=== PATIENT | male | born 1955 | race Caucasian/White ===

== ENCOUNTER 2018-02-16 20:35 | Emergency (ER) | payer OTHER ==
[~2018-02-16] VITALS: Ht 170.2 cm; Wt 61.2 kg
[~2018-02-16 20:35] MED LIST: ALBU.083IS IH; ALBU90OI INH; ASPI325 PO; ATOR40TA PO; ATOR80 PO; AZIT250 PO; BUDE6HFA; DILT180 PO; FLUSAL2505 INH; FLUT44OIA IH; IBUP800 PO; LISI20 PO; Lo-Dose Aspirin81 MG PO; NITR.6SL PO; OMEP40CA12 PO; PRED20 PO; SULTRIDS PO; TUDORZA PRESS400 MCG
[2018-02-16 21:19] LABS: BASOPHILS ABSOLUTE AUTO 0.07 K/mm3 (0.00-0.23); BASOPHILS PERCENT AUTO 1 % (0-2); EOSINOPHILS ABSOLUTE AUTO 0.05 K/mm3 (0.00-0.68); EOSINOPHILS PERCENT AUTO 0 % (0-6); Hematocrit 37.5 % (37.0-53.0); Hemoglobin 12.9 g/dL (13.5-17.5); IMMATURE GRAN ABSOLUTE AUTO 0.05 K/mm3 (0.00-0.10); IMMATURE GRAN PERCENT AUTO 0 % (0-1); LYMPHOCYTES ABSOLUTE AUTO 1.08 K/mm3 (0.84-5.20); LYMPHOCYTES PERCENT AUTO 9 % (21-46); MONOCYTES ABSOLUTE AUTO 1.58 K/mm3 (0.16-1.47); MONOCYTES PERCENT AUTO 13 % (4-13); Mean Corpuscular HGB 34.3 pg (26.0-34.0); Mean Corpuscular HGB Conc 34.4 g/dL (31.5-36.5); Mean Corpuscular Volume 100 fL (80-100); NEUTROPHILS ABSOLUTE AUTO 9.25 K/mm3 (1.96-9.15); NEUTROPHILS PERCENT AUTO 77 % (41-73); Platelet Count 515 K/mm3 (150-400); RDW Coefficient Variation 12.7 % (11.7-14.2); Red Blood Cell Count 3.76 M/mm3 (4.30-5.90); White Blood Cell Count 12.08 K/mm3 (4.00-11.30)
[2018-02-16 21:32] LABS: International Normalized Ratio 1.14; Prothrombin Time Results 11.7 Sec (9.7-11.5)
[2018-02-16 21:35] LABS: Alanine Aminotransfer (ALT/SGP 26 U/L (12-78); Albumin/Globulin Ratio 0.6 (0.8-1.8); Alk Phos 125 U/L (50-136); Anion Gap 10 mmol/L (6-16); Aspartate Aminotrans (AST/SGOT 19 U/L (12-37); Bilirubin, Total 0.7 mg/dL (0.1-1.0); Blood Urea Nitrogen 9 mg/dL (8-24); Bun/Creatinine Ratio 12.6 (12.0-20.0); CO2, Blood 26 mmol/L (21-32); Calcium, Blood 8.8 mg/dL (8.5-10.1); Chloride, Blood 95 mmol/L (98-108); Creatinine, Blood 0.71 mg/dL (0.60-1.20); Globulin, Blood 4.7 g/dL (2.2-4.0); Glomerular Filtration Rate >60 (60-); Glucose, Blood 142 mg/dL (70-99); Potassium, Blood 4.2 mmol/L (3.5-5.5); Sodium, Blood 131 mmol/L (136-145); Total Protein, Blood 7.7 g/dL (6.4-8.2); Troponin I <0.015 ng/mL (0.000-0.040)
[2018-02-16] MEDS ORDERED: Prednisone20 MG PO (22:52)
[2018-02-16] MEDS ORDERED: Zithromax250 MG PO (22:52)
== END 2018-02-16 22:55 | disposition home or self-care (01) ==
LOC: ER 20:35
PROVIDERS: Emergency Medicine
DX: J44.1 Chronic obstructive pulmonary disease with (acute) exacerbation (principal); I48.91 Unspecified atrial fibrillation; F17.210 Nicotine dependence, cigarettes, uncomplicated; Z88.8 Allergy status to other drugs, medicaments and biological substances; Z79.899 Other long term (current) drug therapy; Z79.51 Long term (current) use of inhaled steroids; Z79.82 Long term (current) use of aspirin
CPT/HCPCS: 36415; 71046; 80053; 84484; 85025; 85610; 93005; 93010; 94640; 96365; 96375; 99285-25; J2930; J3010

== ENCOUNTER 2018-02-18 04:40 | Emergency (ER) | payer OTHER ==
[~2018-02-18] VITALS: Ht 170.2 cm; Wt 61.2 kg
[~2018-02-18 04:40] MED LIST changes: +Prednisone20 MG PO; +Zithromax250 MG PO
[2018-02-18 05:23] LABS: BASOPHILS ABSOLUTE AUTO 0.03 K/mm3 (0.00-0.23); BASOPHILS PERCENT AUTO 0 % (0-2); EOSINOPHILS ABSOLUTE AUTO 0.03 K/mm3 (0.00-0.68); EOSINOPHILS PERCENT AUTO 0 % (0-6); Hematocrit 34.7 % (37.0-53.0); Hemoglobin 12.2 g/dL (13.5-17.5); IMMATURE GRAN ABSOLUTE AUTO 0.19 K/mm3 (0.00-0.10); IMMATURE GRAN PERCENT AUTO 1 % (0-1); LYMPHOCYTES PERCENT AUTO 2 % (21-46); MONOCYTES ABSOLUTE AUTO 1.34 K/mm3 (0.16-1.47); MONOCYTES PERCENT AUTO 6 % (4-13); Mean Corpuscular HGB 34.4 pg (26.0-34.0); Mean Corpuscular HGB Conc 35.2 g/dL (31.5-36.5); Mean Corpuscular Volume 98 fL (80-100); Mean Platelet Volume 8.8 fL (9.1-12.4); NEUTROPHILS ABSOLUTE AUTO 20.58 K/mm3 (1.96-9.15); NEUTROPHILS PERCENT AUTO 91 % (41-73); Platelet Count 544 K/mm3 (150-400); RDW Coefficient Variation 12.3 % (11.7-14.2); RDW Standard Deviation 44.9 fL (35.1-46.3); Red Blood Cell Count 3.55 M/mm3 (4.30-5.90); White Blood Cell Count 22.57 K/mm3 (4.00-11.30)
[2018-02-18 05:40] LABS: Magnesium, Blood 2.1 mg/dL (1.6-2.4)
[2018-02-18 05:41] LABS: Alanine Aminotransfer (ALT/SGP 29 U/L (12-78); Albumin, Blood 2.9 g/dL (3.4-5.0); Albumin/Globulin Ratio 0.6 (0.8-1.8); Alk Phos 121 U/L (50-136); Anion Gap 13 mmol/L (6-16); Aspartate Aminotrans (AST/SGOT 22 U/L (12-37); Bilirubin, Total 0.4 mg/dL (0.1-1.0); Blood Urea Nitrogen 12 mg/dL (8-24); CO2, Blood 23 mmol/L (21-32); Calcium, Blood 8.7 mg/dL (8.5-10.1); Chloride, Blood 92 mmol/L (98-108); Creatinine, Blood 0.55 mg/dL (0.60-1.20); Globulin, Blood 4.6 g/dL (2.2-4.0); Glomerular Filtration Rate >60 (60-); Glucose, Blood 211 mg/dL (70-99); Potassium, Blood 4.2 mmol/L (3.5-5.5); Sodium, Blood 128 mmol/L (136-145); Total Protein, Blood 7.5 g/dL (6.4-8.2); Troponin I <0.015 ng/mL (0.000-0.040)
== END 2018-02-18 07:00 | disposition home or self-care (01) ==
LOC: ER 04:40
PROVIDERS: Emergency Medicine
DX: I48.91 Unspecified atrial fibrillation (principal); J44.9 Chronic obstructive pulmonary disease, unspecified; I25.2 Old myocardial infarction; F17.200 Nicotine dependence, unspecified, uncomplicated; Z88.8 Allergy status to other drugs, medicaments and biological substances; Z79.899 Other long term (current) drug therapy; Z79.51 Long term (current) use of inhaled steroids; Z79.82 Long term (current) use of aspirin
CPT/HCPCS: 36415; 80053; 83735; 83880; 84484; 85025; 93005; 93010; 96365; 99285-25

== ENCOUNTER → 2018-05-13 | Outpatient (CLI) | payer OTHER ==
[~2018-05-13] MED LIST changes: +DOCU100 PO; +ONDA4ODT MM
[2018-05-13 16:10] LABS: BASOPHILS ABSOLUTE AUTO 0.07 K/mm3 (0.00-0.23); BASOPHILS PERCENT AUTO 1 % (0-2); EOSINOPHILS ABSOLUTE AUTO 0.06 K/mm3 (0.00-0.68); EOSINOPHILS PERCENT AUTO 1 % (0-6); Hematocrit 44.2 % (37.0-53.0); Hemoglobin 15.3 g/dL (13.5-17.5); IMMATURE GRAN ABSOLUTE AUTO 0.04 K/mm3 (0.00-0.10); IMMATURE GRAN PERCENT AUTO 0 % (0-1); LYMPHOCYTES ABSOLUTE AUTO 1.03 K/mm3 (0.84-5.20); LYMPHOCYTES PERCENT AUTO 10 % (21-46); MONOCYTES ABSOLUTE AUTO 1.22 K/mm3 (0.16-1.47); MONOCYTES PERCENT AUTO 12 % (4-13); Mean Corpuscular HGB 33.8 pg (26.0-34.0); Mean Corpuscular HGB Conc 34.6 g/dL (31.5-36.5); Mean Corpuscular Volume 98 fL (80-100); Mean Platelet Volume 9.5 fL (9.1-12.4); NEUTROPHILS ABSOLUTE AUTO 7.73 K/mm3 (1.96-9.15); NEUTROPHILS PERCENT AUTO 76 % (41-73); Platelet Count 289 K/mm3 (150-400); RDW Coefficient Variation 13.5 % (11.7-14.2); RDW Standard Deviation 49.2 fL (35.1-46.3); Red Blood Cell Count 4.52 M/mm3 (4.30-5.90); White Blood Cell Count 10.15 K/mm3 (4.00-11.30)
[2018-05-13 16:21] LABS: Anion Gap 10 mmol/L (6-16); Blood Urea Nitrogen 9 mg/dL (8-24); Bun/Creatinine Ratio 9.8 (12.0-20.0); CO2, Blood 28 mmol/L (21-32); Calcium, Blood 9.2 mg/dL (8.5-10.1); Chloride, Blood 96 mmol/L (98-108); Creatinine, Blood 0.92 mg/dL (0.60-1.20); Glomerular Filtration Rate >60 (60-); Glucose, Blood 101 mg/dL (70-99); Potassium, Blood 4.4 mmol/L (3.5-5.5); Sodium, Blood 134 mmol/L (136-145)
[2018-05-13 16:22] LABS: Troponin I <0.017 ng/mL (0.000-0.040)
== END | disposition home or self-care (01) ==
LOC: LAB SHORT 16:02 → LAB EV 16:02
PROVIDERS: Physician Assistant Surgical
DX: R07.9 Chest pain, unspecified (principal)
CPT/HCPCS: 80048; 84484; 85025

== ENCOUNTER 2019-04-20 09:53 | Inpatient (IN) | payer OTHER ==
[~2019-04-20] VITALS: Ht 170.2 cm; Wt 61.2 kg
[~2019-04-20 09:53] MED LIST changes: -ASPI325 PO; +Aspirin EC81 MG PO; +LEVO750 PO; +LORPSEER24; +NICO21TP; +NITR.4SL SL; +OMEPRAZOLE MAGN20 MG PO
[2019-04-20 10:23] LABS: BASOPHILS ABSOLUTE AUTO 0.04 K/mm3 (0.00-0.23); BASOPHILS PERCENT AUTO 0 % (0-2); EOSINOPHILS ABSOLUTE AUTO 0.01 K/mm3 (0.00-0.68); EOSINOPHILS PERCENT AUTO 0 % (0-6); Hematocrit 42.9 % (37.0-53.0); Hemoglobin 14.5 g/dL (13.5-17.5); IMMATURE GRAN ABSOLUTE AUTO 0.03 K/mm3 (0.00-0.10); IMMATURE GRAN PERCENT AUTO 0 % (0-1); LYMPHOCYTES ABSOLUTE AUTO 0.42 K/mm3 (0.84-5.20); LYMPHOCYTES PERCENT AUTO 4 % (21-46); MONOCYTES ABSOLUTE AUTO 2.18 K/mm3 (0.16-1.47); MONOCYTES PERCENT AUTO 18 % (4-13); Mean Corpuscular HGB 33.8 pg (26.0-34.0); Mean Corpuscular HGB Conc 33.8 g/dL (31.5-36.5); Mean Corpuscular Volume 100 fL (80-100); Mean Platelet Volume 9.3 fL (9.1-12.4); NEUTROPHILS ABSOLUTE AUTO 9.25 K/mm3 (1.96-9.15); NEUTROPHILS PERCENT AUTO 78 % (41-73); Platelet Count 242 K/mm3 (150-400); RDW Standard Deviation 48.3 fL (35.1-46.3); Red Blood Cell Count 4.29 M/mm3 (4.30-5.90); White Blood Cell Count 11.93 K/mm3 (4.00-11.30)
[2019-04-20 10:46] LABS: Alanine Aminotransfer (ALT/SGP 22 U/L (12-78); Albumin, Blood 3.4 g/dL (3.4-5.0); Albumin/Globulin Ratio 0.8 (0.8-1.8); Alk Phos 85 U/L (50-136); Anion Gap 6 mmol/L (6-16); Aspartate Aminotrans (AST/SGOT 19 U/L (12-37); Bilirubin, Total 0.5 mg/dL (0.1-1.0); Blood Urea Nitrogen 15 mg/dL (8-24); Bun/Creatinine Ratio 24.5 (12.0-20.0); CO2, Blood 30 mmol/L (21-32); Calcium, Blood 8.9 mg/dL (8.5-10.1); Chloride, Blood 97 mmol/L (98-108); Creatinine, Blood 0.61 mg/dL (0.60-1.20); Globulin, Blood 4.2 g/dL (2.2-4.0); Glomerular Filtration Rate >60 (60-); Glucose, Blood 108 mg/dL (70-99); Potassium, Blood 4.2 mmol/L (3.5-5.5); Sodium, Blood 133 mmol/L (136-145); Total Protein, Blood 7.6 g/dL (6.4-8.2); Troponin I <0.015 ng/mL (0.000-0.040)
[2019-04-20] MEDS ORDERED: Prednisone5 MG PO (11:58)
[2019-04-20] MEDS ORDERED: SPIRIVA RESPIMAT4 GM INH (11:58)
[2019-04-20] MEDS ORDERED: FLUTICASONE-SA1 EAC5 INH (11:59)
[2019-04-20] MEDS ORDERED: Prinivil5 MG PO (11:59)
[2019-04-20] MEDS ORDERED: Cartia Xt240 MG PO (11:59)
[2019-04-20] MEDS ORDERED: OMEP20ER PO (11:59)
[2019-04-20] MEDS ORDERED: Ventolin/Prove6.7 GM INH (12:00)
[2019-04-20] MEDS ORDERED: ATORVASTATIN CA40 MG PO (12:00)
[2019-04-20] MEDS ORDERED: INCRUSE ELLI62.5 MCG INH (12:00)
[2019-04-20] MEDS ORDERED: ONDA4ODT PO (12:01)
[2019-04-20 13:41] LABS: PCO2 Arterial 46.9 mmHg (35-45); PO2 Arterial 74.9 mmHg (80-100)
--- NOTE | 2019-04-20 14:07 | NUR ---
ARRIVAL PT ARRICED TO UNIT APPROX. 1230 VIA GURNERY FROM ED. PT WAS TRANSFER FROM ONE BED TO ANOTHER. ORIENTED PT TO ROOM, UNIT AND POLICIES. ADMISSION PROCESS COMPLETED. ASSESSMENT COMPLETED. VITAL SIGNS STABLE. PT TACHYPNEANIC WITH EXERCSION. PT ABLE TO CATCH HIS BREATH AND ANSWER QUESTIONS APPROPRIATELY. PT LUNG SOUNDS RHONCHI T/O WITH EXPIRATORY WHEEZES. PT ON 2L OXGYEN VIA N.C. WITH OXYGEN SATS 93. BED IN LOW POSITION, CALL LIGHT IN REACH AND PT DENIES ANY NEEDS. WILL CONTINUE TO MONITOR.
[2019-04-20 15:30] LABS: Adenovirus Not Detected (NOT DETECT); Bordetella pertussis Not Detected (NOT DETECT); Chlamydophila pneumoniae Not Detected (NOT DETECT); Coronavirus 229E Not Detected (NOT DETECT); Coronavirus HKU1 Not Detected (NOT DETECT); Coronavirus NL63 Not Detected (NOT DETECT); Coronavirus OC43 Not Detected (NOT DETECT); Human Metapneumovirus Not Detected (NOT DETECT); Human Rhinovirus/Enterovirus Not Detected (NOT DETECT); Influenza A Not Detected (NOT DETECT); Influenza A/2009-H1 Not Detected (NOT DETECT); Influenza A/H1 Not Detected (NOT DETECT); Influenza A/H3 Not Detected (NOT DETECT); Influenza B Not Detected (NOT DETECT); Mycoplasma pneumoniae Not Detected (NOT DETECT); Parainfluenza Virus 1 Not Detected (NOT DETECT); Parainfluenza Virus 2 Not Detected (NOT DETECT); Parainfluenza Virus 3 Not Detected (NOT DETECT); Parainfluenza Virus 4 Not Detected (NOT DETECT); Respiratory Syncytial Virus Not Detected (NOT DETECT)
--- NOTE | 2019-04-20 19:29 | NUR ---
SHIFT SUMMARY PT PLEASANT, COOPERATIVE AND USES CALL LIGHT APROPRIATELY. PT REMAINS A&OX4. VITAL SIGNS STABLE. ALTHOUGHT BLOOD PRESSURE SLIGHTLY ELEVATED WHEN PT ARRIVED TO UNIT. WHEN RECHECKED LATER WHEN PT WAS CALMER THIS IMPROVED. PT SLEPT FOR MOST OF EVENING BUT REMAINS ARROUSABLE. PT REPORTS HE IS SUPER TIRED AND REALLY JUST WANTS TO GET SOME REST. PT REPROTS HE DOES NOT WANT TO EAT DINNER AND JUST WANTS TO REST AT THIS TIME. PT EX BROUGHT IN SOME BELONGINGS, INCLUDING THE PATIENTS GLASSES, TEETH AND CLOTHES. NOTIFIED PT OF THIS WHEN HE AWOKEN. PT REMAINS ON 2L OXYGEN VIA N.C. WITH SATS 90-93. PT REMAINS TACHYPNEANIC WITH EXERCERTION. BED IN LOW POSITION, CALL LIGHT IN REACH AND PT DENIES ANY NEEDS. WILL CONTINUE TO MONITOR UNTIL HANDOFF TO NIGHTSHIFT RN.
[2019-04-21 03:51] LABS: BASOPHILS ABSOLUTE AUTO 0.01 K/mm3 (0.00-0.23); BASOPHILS PERCENT AUTO 0 % (0-2); EOSINOPHILS PERCENT AUTO 0 % (0-6); Hematocrit 38.3 % (37.0-53.0); IMMATURE GRAN ABSOLUTE AUTO 0.02 K/mm3 (0.00-0.10); IMMATURE GRAN PERCENT AUTO 0 % (0-1); LYMPHOCYTES ABSOLUTE AUTO 0.28 K/mm3 (0.84-5.20); LYMPHOCYTES PERCENT AUTO 4 % (21-46); MONOCYTES ABSOLUTE AUTO 0.24 K/mm3 (0.16-1.47); MONOCYTES PERCENT AUTO 3 % (4-13); Mean Corpuscular HGB 33.5 pg (26.0-34.0); Mean Corpuscular HGB Conc 33.9 g/dL (31.5-36.5); Mean Corpuscular Volume 99 fL (80-100); Mean Platelet Volume 9.8 fL (9.1-12.4); NEUTROPHILS ABSOLUTE AUTO 7.36 K/mm3 (1.96-9.15); NEUTROPHILS PERCENT AUTO 93 % (41-73); Platelet Count 242 K/mm3 (150-400); Red Blood Cell Count 3.88 M/mm3 (4.30-5.90); White Blood Cell Count 7.91 K/mm3 (4.00-11.30)
[2019-04-21 04:12] LABS: Anion Gap 8 mmol/L (6-16); Blood Urea Nitrogen 17 mg/dL (8-24); Bun/Creatinine Ratio 32.4 (12.0-20.0); CO2, Blood 27 mmol/L (21-32); Calcium, Blood 8.6 mg/dL (8.5-10.1); Chloride, Blood 99 mmol/L (98-108); Creatinine, Blood 0.53 mg/dL (0.60-1.20); Glomerular Filtration Rate >60 (60-); Glucose, Blood 127 mg/dL (70-99); Potassium, Blood 3.9 mmol/L (3.5-5.5); Sodium, Blood 134 mmol/L (136-145)
--- NOTE | 2019-04-21 08:05 | NUR ---
SHIFT SUMMARY ASSUMED CARE OF PT AROUND 1900 HRS, PT SLEEPING IN BED; "VERY TIRED" PER REPORT. PT ALERT AND ORIENTED WHEN AWAKE, USED CALL LIGHT APPROPRIATELY FOR ASSIST W/ TRANSFER TO STANDING, AND COOPERATIVE WITH ALL INTERVENTIONS. PT MEDICATED AND TREATED PER UNIT PROTOCOL AND MD ORDER. PT OBSERVED TO NUMEROUS COUGHING FITS, SOUNDING MOIST YET MOSTLY UNPRODUCTIVE. OBSERVED SPUTUM TENACIOUS AND UNCOLORED. PT IS FAMILIAR WITH HIS OWN CONDITION AND THE TREATMENT EXPECTED TO BETTER IT. AT PASSING OF CARE AND REPORT TO ONCOMING SHIFT, PT AGAIN SLEEPING, BED LOCKED & LOW, CALL LIGHT W/IN REACH.
--- NOTE | 2019-04-21 08:55 | NUR ---
AM NOTE ASSUMED CARE OF PT APROX 0700, PT IS A&Ox4 AND SBA IN THE ROOM, PT WAS ADMITTED FOR COPD EXAC. PT IS ON 2 L NC WHICH IS HIS HOME DOSE. PT'S L/S COARES AND WHEEZES T/O. PT IS USING PURSED LIP BREATHING. PT'S VS STABLE AT THIS TIME. NO EDEMA NOTED ON ASSESSMENT PT IS NSR IN THE 70'S-80'S. BT PRESENT AND NORMOACTIVE, ABD IS SOFT AND NONTENDER TO PALP. CALL LIGHT IN REACH, BED IS LOCKED AND LOW WILL CONTINUE TO MONITOR.
--- NOTE | 2019-04-21 15:13 | NUR ---
PT TRANSFER. PT WAS TRANSFERED TO MEDICAL FLOOR, REPORT WAS CALLED TO RECEIVING RN. PT'S VS STABLE. PT BECAME SOB WITH ACTIVITY AND USED PURSED LIP BREATHING TO HELP CONTROL THIS. ALL OF PT'S BELONGINGS WERE PACKED AND SENT WITH THE PT.
--- NOTE | 2019-04-21 15:40 | NUR ---
ARRIVED TO ROOM VIA STRETCHER. WHEEZES TO UPPER LOBES. DRY COUGH WITH REPORTED YELLOW/GREEN SPUTUM (UNWITNESSED). PT OX4 INDEPENDENT. ORIENTED TO ROOM AND EXPLAINED FREQUENT ROUNDING. CALL LIGHT WITHIN REACH. BED LOW AND IN LOCKED POSITION. PT DENIES ANY PAIN AT THIS TIME.
--- NOTE | 2019-04-21 17:40 | NUR ---
PT SITTING ON EDGE OF BED WITH INCREASED WORK OF BREATHING. RR INCREASED TO 30'S; 02 SATS 94% ON 2L PER NC. RESPIRATORY CALLED TO BEDSIDE. SET OF VITAL SIGNS TAKEN. PT COUGHING FREQUENTLY (NON PRODUCTIVE AT THIS TIME) LS COARSE. DR. RODRIGUEZ NOTIFIED; NEW RESPIRATORY ORDERS RECEIVED.
--- NOTE | 2019-04-21 18:00 | NUR ---
SHIFT SUMMARY TRANSFER THIS AFTERNOON FROM PCU. COPD EXACERBATION WHEEZY AND COARSE LUNG SOUNDS. PERIODS OF INCREASED SOB AND COUGHING. RESPIRATORY CALLED TO BEDSIDE. NEW ORDER FOR MORE FREQUENT NEBS RECEIVED FROM DR. RODRIGUEZ. CURRENT SMOKER. OX3, SBA TO BATHROOM. USING URINAL WELL. 2-3L PER NC O2 SATS 93-95%.
--- NOTE | 2019-04-22 04:40 | NUR ---
SHIFT SUMMARY- PT. RESTED ON/OFF DURING THE NIGHT. PT. WITH HACKING COUGH THAT'S NOT VERY PRODUCTIVE. PRN COUGH MED GIVEN EMAR. PT. REPORTS OCCASIONAL RELIEF WITH COUGH MEDICINE AND BREATHING TX'S, BUT DOESN'T LAST VERY LONG. ON 2L NC SATS AT 94-95%. DENIES ANY PAIN. NO APPARENT DISTRESS NOTED. CALL LIGHT WITHIN REACH AND SIDE RAILS UP X2. WILL CONT TO MONITOR.
--- NOTE | 2019-04-22 17:53 | NUR ---
SHIFT SUMMARY- PT ALERT AND ORIENTED, 1PA TO THE BATHROOM, PT USES THE URINAL AT THE BEDSIDE WITH ASSISTANCE. PT HAS COUGHING FITS THAT CAUSE SEVERE DYSPNEA THAT REQUIRES TRIPODING AND PURSED LIP BREATHING TO RECOVER. PT HAS BEEN MEDICATED FOR COUGH T/O THE DAY. PT C/O SINUS CONGESTION RECIEVED AN ORDER FOR DECONGESTANT NASAL SPRAY. PT RECIEVED THIS AT ABOUT 1400 AND SEEMED TO RELAX AND SLEPT FOR A COUPLE OF HOURS. PT LAST RECIEVED COUGH MEDICINE AT AROUND 1730. PT STATED PAIN IN THE STOMACH (R/T COUGH PER PT) AT THE TIME THIS WAS GIVEN; COUGH SYRUP CONTAINS CODIEN WHICH MAY HELP WITH THIS PAIN, PT WANTS TO WAIT TO SEE IF THIS WORKS TO TAKE CARE OF THE PAIN.
--- NOTE | 2019-04-23 04:37 | NUR ---
SHIFT SUMMARY- PT. AWAKE MOST OF THE NIGHT, HAS COUGHING SPASMS. PT. DYSPNEIC ON EXERTION IS ABLE TO SIT ON THE SIDE OF THE BED BUT NOT STAND W/O ASSISTANCE. BED BATH GIVEN AT THE BEDSIDE, PT. TOLERATED WELL. ATTEMPTED TO AMBULATE IN THE [place] BUT UNABLE DUE TO WEAKNESS. COUGH MEDS GIVEN PER EMAR, ALSO RECEIVING SCHEDULED BREATHING TX'S. PT. RESTING QUIETLY IN BED, NO APPARENT DISTRESS NOTED. CALL LIGHT WITHIN REACH AND SIDE RAILS UP X2. WILL CONT TO MONITOR.
--- NOTE | 2019-04-23 11:52 | NUR ---
PT DESAT DURING THERAPY PHYSICAL THERAPY INFORMED THIS RN THAT PT DESATED AFTER WALKING TO THE SINK. PT WAS ON 2L O2 VIA NC. PT DESATED TO 86%. PHYSICAL THERAPY STATED PT RECOVERED QUICKLY, WITHIN A MINUTE AFTER RESTING. WILL CONTINUE TO MONITOR.
--- NOTE | 2019-04-23 17:03 | NUR ---
SHIFT SUMMARY PT COUGH HAS CALMED A LITTLE THIS SHIFT. PT WORKED WITH PT THIS SHIFT. PT TOLERATED BEING UP IN CHAIR FOR APPROX. 30 MINUTES. HOME O2 LIKELY NEEDED PRIOR TO DC DUE TO PT DESATING WITH PHYSICAL THERAPY. NO OTHER CHANGES IN ASSESSMENT AT THIS TIME. VSS. WILL CONTINUE TO MONITOR UNTIL TURNOVER IS COMPLETE.
--- NOTE | 2019-04-24 03:55 | NUR ---
SHIFT SUMMARY- PT.'S COUGH HAS SETTLED. SLEPT WELL MOST OF THE NIGHT, NO APPARENT DISTRESS NOTED. PT. CONTINUES TO BE VERY WEAK. PT WORKED WITH PT. DURING THE DAY. DENIES ANY PAIN OR DISCOMFORT. CALL LIGHT WITHIN REACH AND SIDE RAILS UP X2 WILL CONT TO MONITOR.
--- NOTE | 2019-04-24 09:10 | NUR ---
PT PLEASANT COOP A/O. H/R REG, NO MURMER NOTED. NO TLE. LUNGS EXP WHEEZES T/O WITH LIGHTLY COARSE BASES. ON 2L O2. THIS IS BASELINE. RESP EASY, UNLABORED. SOB WITH EXERTION. BT X4 LAST BM 3 DAYS. MED PER EMAR. VOIDS PER URINAL. BED IN LLOW POSITION, CALL LITE IN REACH, CALLS APPROP
--- NOTE | 2019-04-24 18:39 | NUR ---
PT PLEASANT ALL DAY. HAS BEEN IN GOOD ;HUMOR. STILL SOB. DID HAVE PT WORK WITH HIM TODAY. SHAKEY. NO OTHER CONCERNS AT THIS TIME. BED IN LOW POSITION,C ALL LITE IN REACH, CALLS APPROP
--- NOTE | 2019-04-25 04:15 | NUR ---
SHIFT SUMMARY: PT IS ALERT AND ORIENTED. PT IS CALM AND COOEPRATIVE WITH CARE. PT CALLS APPROPRIATELY. PT IS A ONE PERSON ASSIST TO THE BATHROOM, USES THE URINAL INDEPENDENTLY. PT REPORTS SOB UPON EXERTION, O2 @ 2 L VIA NC KEEPING SATS > 90%. PT DENIES PAIN, NAUSEA, AND VOMITING. PT DID NOT SLEEP MUCH DURING THE NIGHT. NO ACUTE CHANGES OR COMPLICATIONS. WILL CONTINUE TO MONITOR.
[2019-04-25] MEDS ORDERED: Brovana15 MCG/2 M INH (12:55)
[2019-04-25] MEDS ORDERED: Budesonide0.5 MG/2 M INH (12:57)
[2019-04-25] MEDS ORDERED: LOSA25 PO (12:58)
[2019-04-25] MEDS ORDERED: GUAI200 PO (12:59)
[2019-04-25] MEDS ORDERED: ALBU3IS INH (13:00)
[2019-04-25] MEDS ORDERED: NICO21TP TOP (13:01)
[2019-04-25] MEDS ORDERED: Vsl#3 Capsule1 EACH PO (13:01)
[2019-04-25] MEDS ORDERED: OXYM.05NI (13:02)
[2019-04-25] MEDS ORDERED: LEVO750 PO (13:03)
[2019-04-25] MEDS ORDERED: MIRALAX17 GM PO (13:03)
--- NOTE | 2019-04-25 17:11 | NUR ---
DISCHARGE SUMMARY PT DISCHARGED TO HOME. TRANSPORT ARRANGED VIA CASE MANAGEMENT IN ORDER TO HELP PT UP THE STAIRS. PT LEFT ROOM VIA WHEELCHAIR AND ESCORT 1543. PT EDUCATED ON HOME MEDICATIONS AND PNEUMONIA. IV DC'D AND BELONGINGS RETURNED. PT AGREES TO FOLLOW UP WITH PCP.
== END 2019-04-25 15:43 | disposition home or self-care (01) | DRG 193 ==
LOC: ER 09:53 → PCU 11:29 → MEDS 12:21 → PCU 12:38 → MEDS 04-21 14:35 → ENPENDDIS 04-25 10:59 → MEDS 04-25 15:43
PROVIDERS: Emergency Medicine; Nurse Practitioner Acute Care; ADMIT Internal Medicine
DX: J18.9 Pneumonia, unspecified organism (principal); J96.21 Acute and chronic respiratory failure with hypoxia; J44.1 Chronic obstructive pulmonary disease with (acute) exacerbation; J44.0 Chronic obstructive pulmonary disease with (acute) lower respiratory infection; I10 Essential (primary) hypertension; I48.0 Paroxysmal atrial fibrillation; K21.9 Gastro-esophageal reflux disease without esophagitis; F17.210 Nicotine dependence, cigarettes, uncomplicated; Z79.82 Long term (current) use of aspirin; Z79.51 Long term (current) use of inhaled steroids; Z79.52 Long term (current) use of systemic steroids; Z79.899 Other long term (current) drug therapy
CPT/HCPCS: 0099U; 36415; 36600; 71045; 80048; 80053; 82803; 83605; 83880; 84145; 84484; 85025; 85027; 87040; 93005; 93010; 94640; 94644; 94760; 94761; 94762; 96365; 97116; 97162; 97530; 99285-25; J0456; J0696; J1650; J2930; J7030; J7050; J7512; J7605